=== PATIENT | male | born 1935 ===

== ENCOUNTER 2018-01-31 16:42 | Inpatient (IN) | payer MEDICARE, MEDICAID ==
[2018-01-31 16:42] VITALS: BMI 28.3
--- NOTE | 2018-01-31 17:40 | RAD ---
Date of service: 01/31/2018 HISTORY: fever COMPARISON: No prior. FINDINGS: LUNGS: Prominence of pulmonary vasculature may be secondary to AP technique and/or pulmonary vascular congestion. Poor visualization of both lung bases due to overlying soft tissue. PLEURA: No significant pleural effusion identified, no pneumothorax apparent. CARDIOVASCULAR: Atherosclerotic aortic calcifications. Cardiomediastinal silhouette is markedly enlarged. OSSEOUS STRUCTURES: Degenerative changes. VISUALIZED UPPER ABDOMEN: Normal. OTHER FINDINGS: None. IMPRESSION: Poor visualization of both lung bases 2 overlying soft tissue. Prominence of pulmonary vasculature may be secondary to AP technique and/or pulmonary vascular congestion.
[2018-01-31 17:57] LABS: VENOUS BLOOD GAS BASE EXCESS -1.3 mmol/L (0.0-2.0); VENOUS BLOOD GAS PCO2 35 mmHg (40-60); VENOUS BLOOD GAS PO2 43 mm/Hg (30-55); VENOUS BLOOD PH 7.42 (7.32-7.43)
[2018-01-31 18:00] LABS: BASO # 0.1 K/uL (0.0-0.2); BASO % 0.7 % (0.0-2.0); EOS % 0.1 % (0.0-4.0); HEMOGLOBIN 13.5 g/dL (12.0-18.0); LYMPH # 1.2 K/uL (1.0-4.3); LYMPH % 12.6 % (20.0-40.0); MEAN CELL VOLUME 102.8 fl (80.0-94.0); MEAN PLATELET VOLUME 8.8 fl (7.2-11.7); MONO # 0.8 K/uL (0.0-0.8); MONO % 8.1 % (0.0-10.0); NEUT # 7.3 K/uL (1.8-7.0); NEUT % 78.5 % (50.0-75.0); NRBC % 0.1 % (0.0-0.0); RBC 3.86 Mil/uL (4.40-5.90); RED CELL DISTRIBUTION WIDTH 13.3 % (11.5-14.5); WHITE BLOOD COUNT 9.3 K/uL (4.8-10.8)
[2018-01-31 18:08] LABS: INR 1.3 (0.9-1.2); PARTIAL THROMBOPLASTIN TIME 32.9 Seconds (25.6-37.1); PROTHROMBIN TIME 14.9 Seconds (9.8-13.1)
[2018-01-31 18:10] LABS: ALB/GLOB RATIO 1.1 (1.0-2.1); CALCIUM 8.9 mg/dL (8.4-10.2)
[2018-01-31] MEDS ORDERED: Sodium Chloride 0.9% 1,000 ML IV STA (18:46)
[2018-01-31] MEDS ORDERED: Insulin Regular 100 units/ml SC STA (18:58)
--- NOTE | 2018-01-31 18:59 | ED PDOC ---
HPI: General Adult Time Seen by Provider: 01/31/18 17:10 Chief Complaint (Nursing): Fever Chief Complaint (Provider): Fever History Per: Patient History/Exam Limitations: no limitations Onset/Duration Of Symptoms: Days (x3) Current Symptoms Are (Timing): Still Present Additional Complaint(s): 82 y/o male with a PMHx of diabetes and HTN brought in by BLS for evaluation of fever x3 days. Patient's son is at bedside. PMD: Dr. Trjeo Past Medical History Reviewed: Historical Data, Nursing Documentation, Vital Signs Vital Signs: Last Vital Signs Temp 99.3 F 02/03/18 16:00 Pulse 77 02/03/18 16:00 Resp 20 02/03/18 16:00 BP 149/71 02/03/18 16:00 Pulse Ox 98 02/07/18 18:19 - Medical History PMH: Anemia, Diabetes, HTN, Peripheral Edema (NO LONGER) Denies: Chronic Kidney Disease - Surgical History Surgical History: Endoscopy - Family History Family History: States: Unknown Family Hx - Social History Current smoker - smoking cessation education provided: No Alcohol: None Drugs: Denies - Immunization History Hx Tetanus Toxoid Vaccination: No Hx Influenza Vaccination: Yes Hx Pneumococcal Vaccination: No - Home Medications Home Medications: Ambulatory Orders Medication Instructions Recorded Losartan [Cozaar] 100 mg PO DAILY #0 tab 06/10/16 Simvastatin 10 mg PO HS #30 tablet 06/10/16 Tamsulosin [Flomax] 0.4 mg PO DAILY #0 cap 06/22/16 Ascorbic Acid [Vitamin C 500 mg 500 mg PO DAILY 01/31/18 Tab] Canagliflozin [Invokana] 300 mg PO DAILY 01/31/18 Docusate [Colace] 100 mg PO HS 01/31/18 Ergocalciferol [Drisdol 50,000 50,000 unit PO SAT 01/31/18 Intl Units Cap] Ferrous Sulfate [High Potency Iron] 2 tab PO HS 01/31/18 Furosemide [Lasix] 20 mg PO DAILY 01/31/18 Glimepiride [amaRYL] 4 mg PO BID 01/31/18 Multivit-Min/FA/Vit K/Lycopene 1 tab PO DAILY 01/31/18 [One-A-Day Men's 50 Plus Tablet] Umeclidinium Brm/Vilanterol Tr 1 puff IH DAILY 01/31/18 [Anoro Ellipta 62.5-25 Mcg INH] Acidoph/L.bulg/Bif.b/S.thermop 1 tab PO BID #14 tab 02/03/18 [Bacid Probiotic 5%-80%-10%-5%] Azithromycin [Zithromax] 500 mg PO DAILY #7 tablet 02/03/18 - Allergies Allergies/Adverse Reactions: Allergies Allergy/AdvReac Type Severity Reaction Status Date / Time No Known Allergies Allergy Verified 01/31/18 16:43 Review of Systems ROS Statement: Except As Marked, All Systems Reviewed And Found Negative Constitutional: Positive for: Fever Physical Exam - Reviewed Nursing Documentation Reviewed: Yes Vital Signs Reviewed: Yes - Physical Exam Appears: Positive for: Non-toxic, No Acute Distress Head Exam: Positive for: ATRAUMATIC, NORMAL INSPECTION, NORMOCEPHALIC Skin: Positive for: Normal Color, Warm, Dry. Negative for: Rash Eye Exam: Positive for: EOMI, Normal appearance, PERRL ENT: Positive for: Normal ENT Inspection Neck: Positive for: Normal, Painless ROM, Supple Cardiovascular/Chest: Positive for: Regular Rate, Rhythm. Negative for: Murmur Respiratory: Positive for: Normal Breath Sounds. Negative for: Respiratory Distress Gastrointestinal/Abdominal: Positive for: Normal Exam, Soft. Negative for: Tenderness Back: Positive for: Normal Inspection. Negative for: L CVA Tenderness, R CVA Tenderness, Vertebral Tenderness Extremity: Positive for: Normal ROM. Negative for: Deformity Neurologic/Psych: Positive for: Alert, Oriented (x3). Negative for: Motor/ Sensory Deficits - Laboratory Results Result Diagrams: 02/01/18 05:30 02/01/18 05:30 - ECG O2 Sat by Pulse Oximetry: 98 (RA) Pulse Ox Interpretation: Normal Medical Decision Making Medical Decision Makin:25 fever, rule out infection such as pneumonia and uti Plan: -VBG shock panel -EKG -CMP -Magnesium -Phosphorus -CBC w/ differential -PTT/PT -CXR -Insulin 4 units SC -1LNS -Tylenol 650mg PO -Blood culture -Urine culture -child monitor -Vital signs Q15M -Urinalysis -Reevaluation 19:19 Labs indicative of likely UTI. Also possible that patient is too dehydrated to show infiltrate on CXR. Patient accepted by Dr. Pena, hospitalist. Scribe Attestation: Documented by Jesus Hopkins, acting as a scribe for Monik Nathan MD. Provider Scribe Attestation: All medical record entries made by the Scribe were at my direction and personally dictated by me. I have reviewed the chart and agree that the record accurately reflects my personal performance of the history, physical exam, medical decision making, and the department course for this patient. I have also personally directed, reviewed, and agree with the discharge instructions and disposition. Disposition - Clinical Impression Clinical Impression: Fever in adult - Patient ED Disposition Is Patient to be Admitted: Yes Counseled Patient/Family Regarding: Studies Performed, Diagnosis, Need For Followup - Disposition Disposition Time: 19:19 Condition: STABLE - Pt Status Changed To: Hospital Disposition Of: Inpatient - Admit Certification Admit to Inpatient:: After my assessment, the patient will require hospitalization for at least two midnights. This is because of the severity of symptoms shown, intensity of services needed, and/or the medical risk in this patient being treated as an outpatient.
[2018-01-31 19:07] LABS: SQUAMOUS EPITHIAL 1 /hpf (0-5); URINE BACTERIA RARE (<OCC); URINE BILIRUBIN NEGATIVE (NEGATIVE); URINE BLOOD MODERATE (NEGATIVE); URINE CLARITY SLIGHTY-CLOUDY (Clear); URINE COLOR YELLOW (YELLOW); URINE GLUCOSE (UA) >=500 mg/dL (Normal); URINE LEUKOCYTE ESTERASE TRACE Leu/uL (Negative); URINE PROTEIN NEGATIVE (NEGATIVE)
[2018-01-31] MEDS ORDERED: Insulin Regular 100 units/ml ONE (19:08)
--- NOTE | 2018-01-31 20:07 | CP.PCM.HP ---
History of Present Illness - History of Present Illness History of Present Illness: 82 yo male with history of DM2 and HTN brought by family because of fever associated with generalized body ache and coughing for 2 days. Patient also noted to have generalized weakness and not eating. Denied SOB, chest pain or abdominal pain. Present on Admission - Present on Admission Any Indicators Present on Admission: No History of DVT/PE: No History of Uncontrolled Diabetes: No Urinary Catheter: No Decubitus Ulcer Present: No Review of Systems - Review of Systems All systems: reviewed and no additional remarkable complaints except (aside from those mentioned above, 12 point system review were negative by me) Past Patient History - Tetanus Immunizations Tetanus Immunization: Unknown - Past Medical History & Family History Past Medical History?: Yes - Past Social History Smoking Status: Former Smoker Chewing Tobacco Use: No Cigar Use: No Alcohol: None Drugs: Denies Home Situation {Lives}: With Family - CARDIAC Hx Hypertension: Yes Hx Peripheral Edema: Yes (NO LONGER) - PULMONARY Other/Comment: Pt. Came in with O2 @ 2 L/NC from [facility]. Hx: cough - NEUROLOGICAL Other/Comment: Hx. feeling weak - HEENT Hx HEENT Problems: Yes Hx Cataracts: Yes (BILAT IOL) - RENAL Hx Chronic Kidney Disease: No - ENDOCRINE/METABOLIC Hx Endocrine Disorders: Yes Hx Diabetes Mellitus Type 2: Yes - HEMATOLOGICAL/ONCOLOGICAL Hx Anemia: Yes - INTEGUMENTARY Hx Dermatological Problems: No - MUSCULOSKELETAL/RHEUMATOLOGICAL Hx Musculoskeletal Disorders: No Hx Falls: No - GASTROINTESTINAL Hx Gastrointestinal Disorders: Yes Hx Gastroesophageal Reflux: Yes - GENITOURINARY/GYNECOLOGICAL Hx Genitourinary Disorders: Yes Hx Bladder Cancer: Yes Hx Hematuria: Yes - PSYCHIATRIC Hx Psychophysiologic Disorder: No Hx Substance Use: No - SURGICAL HISTORY Hx Surgeries: Yes Hx Cataract Extraction: Yes Other/Comment: CYSTOSCOPY TURBT - ANESTHESIA Hx Anesthesia: Yes Hx Anesthesia Reactions: No Hx Malignant Hyperthermia: No Meds Allergies/Adverse Reactions: Allergies Allergy/AdvReac Type Severity Reaction Status Date / Time No Known Allergies Allergy Verified 01/31/18 16:43 Physical Exam - Constitutional Appears: No Acute Distress (appeared weak and lethargic) - Head Exam Head Exam: ATRAUMATIC - Eye Exam Eye Exam: absent: Scleral icterus - ENT Exam ENT Exam: Mucous Membranes Dry - Neck Exam Neck exam: Negative for: Meningismus - Respiratory Exam Respiratory Exam: absent: Rales, Rhonchi, Wheezes, Respiratory Distress - Cardiovascular Exam Cardiovascular Exam: REGULAR RHYTHM, +S1, +S2 - GI/Abdominal Exam GI & Abdominal Exam: Soft. absent: Tenderness - Rectal Exam Rectal Exam: Deferred - Extremities Exam Extremities exam: Negative for: calf tenderness, pedal edema - Back Exam Back exam: NORMAL INSPECTION - Neurological Exam Neurological exam: Altered (lethargic but able to respond appropriately) - Psychiatric Exam Psychiatric exam: Flat Affect - Skin Skin Exam: Dry, Intact Results - Vital Signs Recent Vital Signs: Last Vital Signs Temp 99.4 F 01/31/18 19:38 Pulse 85 01/31/18 19:38 Resp 24 01/31/18 19:38 BP 110/57 L 01/31/18 19:38 Pulse Ox 95 01/31/18 19:38 - Labs Result Diagrams: 01/31/18 17:54 01/31/18 17:54 Labs: Laboratory Results - last 24 hr 01/31/18 01/31/18 01/31/18 17:54 17:54 17:54 WBC 9.3 RBC 3.86 L Hgb 13.5 Hct 39.7 MCV 102.8 H MCH 35.0 H MCHC 34.0 RDW 13.3 Plt Count 111 L MPV 8.8 Neut % (Auto) 78.5 H Lymph % (Auto) 12.6 L [place] % (Auto) 8.1 Eos % (Auto) 0.1 Baso % (Auto) 0.7 Neut # (Auto) 7.3 H Lymph # (Auto) 1.2 [place] # (Auto) 0.8 Eos # (Auto) 0.0 Baso # (Auto) 0.1 PT 14.9 H INR 1.3 H APTT 32.9 pO2 VBG pH VBG pCO2 VBG HCO3 VBG Total CO2 VBG O2 Sat (Calc) VBG Base Excess VBG Potassium Sodium 138 Chloride 103 Glucose Lactate FiO2 Potassium 4.4 Carbon Dioxide 20 L Anion Gap 19 BUN 39 H Creatinine 1.6 H Est GFR ( Amer) 51 Est GFR (Non-Af Amer) 42 Random Glucose 239 H Calcium 8.9 Phosphorus 1.8 L Magnesium 2.6 H Total Bilirubin 3.4 H AST 56 ALT 43 Alkaline Phosphatase 66 Total Protein 7.7 Albumin 4.0 Globulin 3.7 Albumin/Globulin Ratio 1.1 Venous Blood Potassium Urine Color Urine Clarity Urine pH Ur Specific [place] Urine Protein Urine Glucose (UA) Urine Ketones Urine Blood Urine Nitrate Urine Bilirubin Urine Urobilinogen Ur Leukocyte Esterase Urine RBC (Auto) Urine Microscopic WBC Ur Squamous Epith Cells Urine Bacteria 01/31/18 01/31/18 17:54 18:40 WBC RBC Hgb Hct MCV MCH MCHC RDW Plt Count MPV Neut % (Auto) Lymph % (Auto) [place] % (Auto) Eos % (Auto) Baso % (Auto) Neut # (Auto) Lymph # (Auto) [place] # (Auto) Eos # (Auto) Baso # (Auto) PT INR APTT pO2 43 VBG pH 7.42 VBG pCO2 35 L VBG HCO3 23.4 VBG Total CO2 23.8 VBG O2 Sat (Calc) 82.0 H VBG Base Excess -1.3 L VBG Potassium 4.3 Sodium 135.0 Chloride 101.0 Glucose 258 H Lactate 2.7 H FiO2 21.0 Potassium Carbon Dioxide Anion Gap BUN Creatinine Est GFR ( Amer) Est GFR (Non-Af Amer) Random Glucose Calcium Phosphorus Magnesium Total Bilirubin AST ALT Alkaline Phosphatase Total Protein Albumin Globulin Albumin/Globulin Ratio Venous Blood Potassium 4.3 Urine Color Yellow Urine Clarity Slighty-cloudy Urine pH 5.0 Ur Specific [place] 1.020 Urine Protein Negative Urine Glucose (UA) >=500 Urine Ketones Negative Urine Blood Moderate Urine Nitrate Negative Urine Bilirubin Negative Urine Urobilinogen 4.0 Ur Leukocyte Esterase Trace Urine RBC (Auto) 25 H Urine Microscopic WBC 5 Ur Squamous Epith Cells 1 Urine Bacteria Rare Assessment & Plan - Assessment and Plan (Free Text) Assessment: 82 yo male with history of DM2 and HTN brought by family because of fever associated with generalized body ache and coughing for 2 days. Patient also noted to have generalized weakness and not eating. Denied SOB, chest pain or abdominal pain. 1. SIRS follow up blood and urine culture Rocephin 1gm IV daily Tylenol 650mg PO q 6hrs prn for fever continue IV hydration with NSS 200cc/hr 2. DM2 accuchek ACHS with Lispro coverage Glucotrol 10mg PO q am HgA1C, BMP in am 3. HTN BP stable continue Losartan 100mg PO daily
[2018-01-31] MEDS ORDERED: cefTRIAXone (Rocephin) 1 gm Inj ONE (20:23)
[2018-01-31 21:09] LABS: VENOUS BLOOD GAS PCO2 43 mmHg (40-60); VENOUS BLOOD GAS PO2 67 mm/Hg (30-55); VENOUS BLOOD PH 7.38 (7.32-7.43)
[2018-01-31] MEDS: Insulin Lispro (humaLOG) 100 Units/ml Inj SC SCH (22:24)
[2018-01-31] MEDS: Sodium Chloride 0.9% 1,000 ML IV SCH (22:26)
[2018-02-01] MEDS: Sodium Chloride 0.9% 1,000 ML IV SCH ×3 (01:32→20:00)
[2018-02-01 06:15] LABS: BASO % 0.4 % (0.0-2.0); EOS # 0.1 K/uL (0.0-0.7); EOS % 1.5 % (0.0-4.0); HEMOGLOBIN 13.4 g/dL (12.0-18.0); LYMPH % 31.7 % (20.0-40.0); MEAN CELL VOLUME 104.6 fl (80.0-94.0); MEAN CORPUSCULAR HEMOGLOBIN 35.4 pg (27.0-31.0); MEAN CORPUSCULAR HGB CONC 33.8 g/dL (33.0-37.0); MONO # 0.9 K/uL (0.0-0.8); MONO % 9.4 % (0.0-10.0); NEUT # 5.3 K/uL (1.8-7.0); RBC 3.8 Mil/uL (4.40-5.90); RED CELL DISTRIBUTION WIDTH 13.4 % (11.5-14.5); WHITE BLOOD COUNT 9.3 K/uL (4.8-10.8)
[2018-02-01 06:22] LABS: BLOOD UREA NITROGEN 39 mg/dl (9-20); CALCIUM 8.3 mg/dL (8.4-10.2); GFR NON-AFRICAN AMERICAN 53
--- NOTE | 2018-02-01 10:34 | RAD ---
Date of service: 02/01/2018 PROCEDURE: CHEST RADIOGRAPH, 1 VIEW HISTORY: rule out pneumonia COMPARISON: None available. FINDINGS: LUNGS: Diminished pulmonary volume. Body habitus obscures lung bases with right basilar airspace disease not excluded. None is evident at the left. PLEURA: No large pleural effusion or pneumothorax identified however again, the bases are obscured by a body habitus significantly. CARDIOVASCULAR: Stable cardiomegaly. Pulmonary vascular pattern appears stable with borderline congestion in question. OSSEOUS STRUCTURES: No significant abnormalities. VISUALIZED UPPER ABDOMEN: Normal. OTHER FINDINGS: None. IMPRESSION: Limited examination due to body habitus. No large infiltrate, pleural effusion or pneumothorax is identified. The bilateral bases are quite obscured by body habitus. Cardiomegaly appears stable. Borderline pulmonary vascular congestion.
--- NOTE | 2018-02-01 12:32 | CARD ---
APPROVED REPORT Date of service: 01/31/2018 EKG Measurement Heart [id number] <Conclusion> Sinus tachycardia Possible Left atrial enlargement Low voltage QRS Cannot rule out Anteroseptal infarct, age undetermined Abnormal ECG
--- NOTE | 2018-02-01 13:39 | CP.PCM.PN ---
Subjective - Date & Time of Evaluation Date of Evaluation: 02/01/18 Time of Evaluation: 10:30 - Subjective Subjective: Patient seen and examined. Appeared more alert and claimed he felt better. Has been afebrile since yesterday. Objective - Vital Signs/Intake and Output Vital Signs (last 24 hours): Temp Pulse Resp BP Pulse Ox 97.3 F L 74 20 125/67 95 02/01/18 12:53 02/01/18 12:53 02/01/18 12:53 02/01/18 12:53 02/01/18 12:53 - Medications Medications: Current Medications Acetaminophen (Tylenol 325mg Tab) 650 mg PO Q6 PRN PRN Reason: Fever >100.4 F Acetylcysteine (Acetylcysteine 20%) 2 ml INH RBID [facility] Ascorbic Acid (Vitamin C 500 Mg Tab) 500 mg PO DAILY [facility] Last Admin: 02/01/18 09:37 Dose: 500 mg Atorvastatin Calcium (Lipitor) 10 mg PO HS [facility] Last Admin: 02/01/18 00:20 Dose: 10 mg Docusate Sodium (Colace) 100 mg PO HS [facility] Last Admin: 02/01/18 00:20 Dose: 100 mg Ergocalciferol (Drisdol 50,000 Intl Units Cap) 1 cap PO SAT [facility] Ferrous Sulfate (Feosol) 325 mg PO HS [facility] Furosemide (Lasix) 20 mg PO DAILY [facility] Last Admin: 02/01/18 09:36 Dose: 20 mg Glipizide (Glucotrol) 10 mg PO ACB [facility] Last Admin: 02/01/18 09:35 Dose: 10 mg Heparin Sodium (Porcine) (Heparin) 5,000 units SC Q12 [facility] PRN Reason: Protocol Last Admin: 02/01/18 09:35 Dose: 5,000 units Ceftriaxone Sodium 1 gm/ (Sodium Chloride) 100 mls @ 100 mls/hr IVPB DAILY [facility] PRN Reason: Protocol Last Admin: 02/01/18 09:39 Dose: 100 mls/hr Sodium Chloride (Sodium Chloride 0.9%) 1,000 mls @ 150 mls/hr IV .Q6H40M [facility] Stop: 02/01/18 20:19 Last Admin: 02/01/18 01:32 Dose: 150 mls/hr Azithromycin 500 mg/ Sodium (Chloride) 250 mls @ 250 mls/hr IVPB DAILY [facility] PRN Reason: Protocol Insulin Human Lispro (Humalog) 0 units SC ACHS [facility] PRN Reason: Protocol Last Admin: 01/31/18 22:24 Dose: Not Given Losartan Potassium (Cozaar) 100 mg PO DAILY [facility] Last Admin: 02/01/18 09:34 Dose: 100 mg Tamsulosin HCl (Flomax) 0.4 mg PO DAILY [facility] Last Admin: 02/01/18 09:35 Dose: 0.4 mg - Labs Labs: 02/01/18 05:30 02/01/18 05:30 PT 14.9 Seconds (9.8-13.1) H 01/31/18 17:54 INR 1.3 (0.9-1.2) H 01/31/18 17:54 APTT 32.9 Seconds (25.6-37.1) 01/31/18 17:54 - Constitutional Appears: No Acute Distress - Head Exam Head Exam: ATRAUMATIC - Eye Exam Eye Exam: absent: Scleral icterus - ENT Exam ENT Exam: Mucous Membranes Moist - Neck Exam Neck Exam: absent: Meningismus - Respiratory Exam Respiratory Exam: Rales, Rhonchi. absent: Wheezes, Respiratory Distress - Cardiovascular Exam Cardiovascular Exam: REGULAR RHYTHM, +S1, +S2 - GI/Abdominal Exam GI & Abdominal Exam: Soft. absent: Tenderness - Rectal Exam Rectal Exam: Deferred - Back Exam Back Exam: absent: tenderness - Neurological Exam Neurological Exam: Alert, Oriented x3 - Psychiatric Exam Psychiatric exam: Normal Affect - Skin Skin Exam: Dry, Intact Assessment and Plan - Assessment and Plan (Free Text) Assessment: 82 yo male with history of DM2 and HTN brought by family because of fever associated with generalized body ache and coughing for 2 days. Patient also noted to have generalized weakness and not eating. Denied SOB, chest pain or abdominal pain. 1. Sepsis follow up blood and urine culture urine has trace of leukocyte esterase CXray showed bilateral lower lobe infiltrate?? CT scan of chest continue Rocephin and Zithromax has been afebrile since yesterday continue IV hydration with NSS 150cc/hr 2. DM2 BS controlled accuchek ACHS with Lispro coverage Glucotrol 10mg PO q am HgA1C: 8.7 3. HTN BP stable continue Losartan 100mg PO daily
[2018-02-01] MEDS: Insulin Lispro (humaLOG) 100 Units/ml Inj SC SCH ×3 (14:01→17:13)
[2018-02-01] MEDS: Azithromycin 500 MG in Sodium Chloride 0.9% 250 ML IVPB SCH (14:02)
--- NOTE | 2018-02-01 15:59 | CT ---
Date of service: 02/01/2018 PROCEDURE: CT Chest without contrast HISTORY: obscured reading on CXray COMPARISON: Frontal chest radiograph 02/01/2018. TECHNIQUE: Contiguous axial images were obtained through the chest without intravenous contrast enhancement. Sagittal and coronal reconstructions were performed. Radiation dose (DLP): 359.97 mGy-cm. This CT exam was performed using one or more of the following dose reduction techniques: Automated exposure control, adjustment of the mA and/or kV according to patient size, and/or use of iterative reconstruction technique. FINDINGS: Limitations: Restrained motion related artifacts. LUNGS: Limited peripheral pulmonary emphysematous changes seen bilateral apices and associated fibrosis is noted which also extends more inferiorly to the mid lung guerrero bilaterally. Limited bilateral basilar dependent atelectasis or infiltrates are identified. Motion artifacts are severe at this level. Underlying ground-glass opacity may reflect interstitial pulmonary disease on acute or subacute basis. No pneumothorax. Borderline right apical bronchiectasis. Questionable solitary 4 mm subpleural nodule or fibrosis left upper lobe image 39 series 3, noncalcified. MEDIASTINUM: The thoracic inlet appears unremarkable. There is no thoracic aortic aneurysm. Normal caliber main pulmonary artery segment. Cardiomegaly is noted with mild pulmonary vascular congestion suggested. Trace pericardial effusion noted. Limited mediastinal lymphadenopathy is appreciate including an inferior pretracheal lymph node measuring 0.9 x 1.9 cm. PLEURA: No pleural fluid. No pneumothorax. BONES: No fracture. No destructive lesion. UPPER ABDOMEN: Grossly unremarkable. OTHER FINDINGS: None. IMPRESSION: 1. [id number] pulmonary interstitial fibrosis appreciated, apical predominant where trace emphysematous changes are identified accompanying peripheral fibrotic changes. An element of fibrosis may be present the bilateral bases is difficult to evaluate due to limited alveolitis bilaterally. Ground-glass opacity is suspected at the bilateral lower lobes at the bases. 2. Pattern suggests [id number] pulmonary vascular congestion. Cardiomegaly appears reiterated compared to prior chest radiograph noted above. Trace pericardial effusion. No pleural effusion bilaterally. 3. Limited mediastinal lymphadenopathy. 4. Questionable 4 mm subpleural nodule left upper for which follow-up chest is recommended 1 year to demonstrate stability of this finding.
[2018-02-01 22:57] LABS: SQUAMOUS EPITHIAL 1 /hpf (0-5); URINE BACTERIA RARE (<OCC); URINE BILIRUBIN NEGATIVE (NEGATIVE); URINE BLOOD SMALL (NEGATIVE); URINE CLARITY CLEAR (Clear); URINE COLOR YELLOW (YELLOW); URINE GLUCOSE (UA) >=500 mg/dL (Normal); URINE HYALINE CAST 0-2 /hpf (0-2); URINE LEUKOCYTE ESTERASE NEG Leu/uL (Negative); URINE PROTEIN NEGATIVE (NEGATIVE)
[2018-02-02] MEDS: Acetylcysteine 20% Inhal Soln (4ml) INH SCH ×2 (07:42→19:05)
[2018-02-02] MEDS: Azithromycin 500 MG in Sodium Chloride 0.9% 250 ML IVPB SCH (09:31)
[2018-02-02] MEDS: Insulin Lispro (humaLOG) 100 Units/ml Inj SC SCH ×4 (09:32→22:44)
[2018-02-02] MEDS: Lactobacillus Acidophilus 500 MU Cap PO SCH ×2 (11:24→16:38)
--- NOTE | 2018-02-02 15:05 | CP.PCM.PN ---
Subjective - Date & Time of Evaluation Date of Evaluation: 02/02/18 Time of Evaluation: 11:00 - Subjective Subjective: Patient seen and examined. Complained of too much unproductive coughing. Also has been having large amount of diarrhea since yesterday. Objective - Vital Signs/Intake and Output Vital Signs (last 24 hours): Temp Pulse Resp BP Pulse Ox 98.6 F 80 18 136/73 98 02/02/18 11:57 02/02/18 13:09 02/02/18 11:57 02/02/18 11:57 02/02/18 13:09 - Medications Medications: Current Medications Acetaminophen (Tylenol 325mg Tab) 650 mg PO Q6 PRN PRN Reason: Fever >100.4 F Acetylcysteine (Acetylcysteine 20%) 2 ml INH RBID [facility] Last Admin: 02/02/18 07:42 Dose: Not Given Albuterol/Ipratropium (Duoneb 3 Mg/0.5 Mg (3 Ml) Ud) 3 ml INH RBID [facility] Ascorbic Acid (Vitamin C 500 Mg Tab) 500 mg PO DAILY [facility] Last Admin: 02/02/18 09:31 Dose: 500 mg Atorvastatin Calcium (Lipitor) 10 mg PO HS [facility] Last Admin: 02/01/18 21:25 Dose: 10 mg Ergocalciferol (Drisdol 50,000 Intl Units Cap) 1 cap PO SAT [facility] Ferrous Sulfate (Feosol) 325 mg PO HS [facility] Last Admin: 02/01/18 21:23 Dose: 325 mg Furosemide (Lasix) 20 mg PO DAILY [facility] Last Admin: 02/02/18 09:32 Dose: 20 mg Glipizide (Glucotrol) 5 mg PO ACB [facility] Guaifenesin/Dextromethorphan (Robitussin Dm) 10 ml PO Q6 PRN PRN Reason: Cough Heparin Sodium (Porcine) (Heparin) 5,000 units SC Q12 [facility] PRN Reason: Protocol Last Admin: 02/02/18 09:34 Dose: 5,000 units Ceftriaxone Sodium 1 gm/ (Sodium Chloride) 100 mls @ 100 mls/hr IVPB DAILY [facility] PRN Reason: Protocol Last Admin: 02/02/18 09:34 Dose: 100 mls/hr Azithromycin 500 mg/ Sodium (Chloride) 250 mls @ 250 mls/hr IVPB DAILY [facility] PRN Reason: Protocol Last Admin: 02/02/18 09:31 Dose: 250 mls/hr Insulin Human Lispro (Humalog) 0 units SC ACHS [facility] PRN Reason: Protocol Last Admin: 02/02/18 12:48 Dose: 1 units Lactobacillus Acidophilus (Bacid Acidophilus) 1 cap PO BID [facility] Last Admin: 02/02/18 11:24 Dose: 1 cap Losartan Potassium (Cozaar) 100 mg PO DAILY [facility] Last Admin: 02/02/18 09:33 Dose: 100 mg Tamsulosin HCl (Flomax) 0.4 mg PO DAILY [facility] Last Admin: 02/02/18 09:34 Dose: 0.4 mg - Labs Labs: 02/01/18 05:30 02/01/18 05:30 PT 14.9 Seconds (9.8-13.1) H 01/31/18 17:54 INR 1.3 (0.9-1.2) H 01/31/18 17:54 APTT 32.9 Seconds (25.6-37.1) 01/31/18 17:54 - Constitutional Appears: No Acute Distress - Head Exam Head Exam: ATRAUMATIC - Eye Exam Eye Exam: absent: Scleral icterus - ENT Exam ENT Exam: Mucous Membranes Moist - Neck Exam Neck Exam: absent: Meningismus - Respiratory Exam Respiratory Exam: Rales, Rhonchi. absent: Wheezes, Respiratory Distress - Cardiovascular Exam Cardiovascular Exam: REGULAR RHYTHM, +S1, +S2 - GI/Abdominal Exam GI & Abdominal Exam: Soft. absent: Tenderness - Rectal Exam Rectal Exam: Deferred - Back Exam Back Exam: NORMAL INSPECTION - Neurological Exam Neurological Exam: Alert, Oriented x3 - Psychiatric Exam Psychiatric exam: Normal Affect - Skin Skin Exam: Dry, Intact Assessment and Plan - Assessment and Plan (Free Text) Assessment: 82 yo male with history of DM2 and HTN brought by family because of fever associated with generalized body ache and coughing for 2 days. Patient also noted to have generalized weakness and not eating. 1. UTI urine culture: Gram + cocci continue Rocephin and Zithromax has been afebrile since yesterday 2. Pneumonia CT scan of Chest: pulmonary interstitial fibrosis with emphysematous changes and ground glass opacity on both bases; cardiomegaly with mild pulmonary congestion on IV Rocephin and Zithromax Mucomyst with Duoneb for inhalation therapy BID Robitussin DM q 6hrs for coughing Procalcitonin: 2.5 3. Diarrhea stools sent for C dif place on contact isolation 4. DM2 BS low this morning on 2 occasions accuchek ACHS with Lispro coverage reduce Glucotrol to 5mg PO ACB HgA1C: 8.7 5. HTN BP stable continue Losartan 100mg PO daily Lasix 40mg PO daily
[2018-02-02 16:27] LABS: TROPONIN I 0.044 ng/mL (0.00-0.120)
[2018-02-02] MEDS: guaiFENesin DM 200 mg-20 mg/10 ml UD PO PRN ×2 (16:39→22:44)
[2018-02-02] MEDS: Albuterol-Ipratrop 3 mg / 0.5 (3 ml) UD INH SCH (19:05)
[2018-02-03 00:14] VITALS: RESP 20
[2018-02-03] MEDS: Insulin Lispro (humaLOG) 100 Units/ml Inj SC SCH ×3 (06:37→17:56)
[2018-02-03] MEDS: Albuterol-Ipratrop 3 mg / 0.5 (3 ml) UD INH SCH (07:30)
[2018-02-03] MEDS: Acetylcysteine 20% Inhal Soln (4ml) INH SCH (07:30)
[2018-02-03] MEDS ORDERED: Ergocalciferol 50,000 Intl Units Cap PO SCH (09:00)
[2018-02-03] MEDS: Lactobacillus Acidophilus 500 MU Cap PO SCH ×2 (09:12→17:57)
[2018-02-03] MEDS: Azithromycin 500 MG in Sodium Chloride 0.9% 250 ML IVPB SCH (09:13)
[2018-02-03] MEDS: guaiFENesin DM 200 mg-20 mg/10 ml UD PO PRN (09:21)
[2018-02-03 16:25] VITALS: BP 149/71; PULSE 77; TEMP 99.3
--- NOTE | 2018-02-03 17:39 | CP.PCM.DIS ---
Provider - Provider Date of Admission: 01/31/18 19:19 Attending physician: Tremayne Pena MD Time Spent in preparation of Discharge (in minutes): 25 Diagnosis - Discharge Diagnosis (1) UTI (urinary tract infection) Status: Acute Comment: Patient was put on IV Rocephin and Zithromax. to continue PO Zithromax for another 7 days (2) Pneumonia Status: Acute Comment: patient put on IV Rocephin and Zithromax. sent home on PO Zithromax (3) DM2 (diabetes mellitus, type 2) Status: Chronic Comment: resume Amaryl and Invokana at home (4) HTN (hypertension) Status: Chronic Comment: BP stable. continue Losartan Hospital Course - Lab Results Lab Results: Micro Results 01/31/18 17:30 Blood Blood Culture - Preliminary NO GROWTH AFTER 48 HOURS 01/31/18 17:00 Blood Blood Culture - Preliminary NO GROWTH AFTER 48 HOURS 01/31/18 18:40 Urine,Clean Catch Urine Culture - Final Gram Positive Cocci Most Recent Lab Values WBC 9.3 K/uL (4.8-10.8) 02/01/18 05:30 RBC 3.80 Mil/uL (4.40-5.90) L 02/01/18 05:30 Hgb 13.4 g/dL (12.0-18.0) 02/01/18 05:30 Hct 39.7 % (35.0-51.0) 02/01/18 05:30 MCV 104.6 fl (80.0-94.0) H 02/01/18 05:30 MCH 35.4 pg (27.0-31.0) H 02/01/18 05:30 MCHC 33.8 g/dL (33.0-37.0) 02/01/18 05:30 RDW 13.4 % (11.5-14.5) 02/01/18 05:30 Plt Count 95 K/uL (130-400) L 02/01/18 05:30 MPV 9.0 fl (7.2-11.7) 02/01/18 05:30 Neut % (Auto) 57.0 % (50.0-75.0) 02/01/18 05:30 Lymph % (Auto) 31.7 % (20.0-40.0) 02/01/18 05:30 [place] % (Auto) 9.4 % (0.0-10.0) 02/01/18 05:30 Eos % (Auto) 1.5 % (0.0-4.0) 02/01/18 05:30 Baso % (Auto) 0.4 % (0.0-2.0) 02/01/18 05:30 Neut # (Auto) 5.3 K/uL (1.8-7.0) 02/01/18 05:30 Lymph # (Auto) 3.0 K/uL (1.0-4.3) 02/01/18 05:30 [place] # (Auto) 0.9 K/uL (0.0-0.8) H 02/01/18 05:30 Eos # (Auto) 0.1 K/uL (0.0-0.7) 02/01/18 05:30 Baso # (Auto) 0.0 K/uL (0.0-0.2) 02/01/18 05:30 PT 14.9 Seconds (9.8-13.1) H 01/31/18 17:54 INR 1.3 (0.9-1.2) H 01/31/18 17:54 APTT 32.9 Seconds (25.6-37.1) 01/31/18 17:54 pO2 67 mm/Hg (30-55) H 01/31/18 21:06 VBG pH 7.38 (7.32-7.43) 01/31/18 21:06 VBG pCO2 43 mmHg (40-60) 01/31/18 21:06 VBG HCO3 24.8 mmol/L 01/31/18 21:06 VBG Total CO2 26.7 mmol/L (22-28) 01/31/18 21:06 VBG O2 Sat (Calc) 95.2 % (40-65) H 01/31/18 21:06 VBG Base Excess 0.0 mmol/L (0.0-2.0) 01/31/18 21:06 VBG Potassium 3.9 mmol/L (3.6-5.2) 01/31/18 21:06 Sodium 137.0 mmol/L (132-148) 01/31/18 21:06 Chloride 103.0 mmol/L (98-107) 01/31/18 21:06 Glucose 184 mg/dL (75-110) H 01/31/18 21:06 Lactate 1.1 mmol/L (0.7-2.1) 01/31/18 21:06 FiO2 21.0 % 01/31/18 21:06 Sodium 141 mmol/l (132-148) 02/01/18 05:30 Potassium 4.3 MMOL/L (3.6-5.0) 02/01/18 05:30 Chloride 107 mmol/L (98-107) 02/01/18 05:30 Carbon Dioxide 24 mmol/L (22-30) 02/01/18 05:30 Anion Gap 14 (10-20) 02/01/18 05:30 BUN 39 mg/dl (9-20) H 02/01/18 05:30 Creatinine 1.3 mg/dl (0.8-1.5) 02/01/18 05:30 Est GFR ( Amer) > 60 02/01/18 05:30 Est GFR (Non-Af Amer) 53 02/01/18 05:30 POC Glucose (mg/dL) 186 mg/dL (65-110) H 02/03/18 12:00 Random Glucose 89 mg/dL (75-110) 02/01/18 05:30 Hemoglobin A1c 8.7 % (4.2-6.5) H 02/01/18 06:30 Calcium 8.3 mg/dL (8.4-10.2) L 02/01/18 05:30 Phosphorus 1.8 mg/dl (2.5-4.5) L 01/31/18 17:54 Magnesium 2.6 MG/DL (1.6-2.3) H 01/31/18 17:54 Total Bilirubin 3.4 mg/dl (0.2-1.3) H 01/31/18 17:54 AST 56 U/L (17-59) 01/31/18 17:54 ALT 43 U/L (21-72) 01/31/18 17:54 Alkaline Phosphatase 66 U/L (38-126) 01/31/18 17:54 Troponin I 0.0440 ng/mL (0.00-0.120) 02/02/18 15:40 NT-Pro-B Natriuret Pep 298 pg/ml (0-900) 02/02/18 15:40 Total Protein 7.7 G/DL (6.3-8.2) 01/31/18 17:54 Albumin 4.0 g/dL (3.5-5.0) 01/31/18 17:54 Globulin 3.7 gm/dL (2.2-3.9) 01/31/18 17:54 Albumin/Globulin Ratio 1.1 (1.0-2.1) 01/31/18 17:54 Procalcitonin 2.50 NG/ML (0.19-0.49) H 02/01/18 15:40 TSH 3rd Generation 2.71 mIU/ML (0.46-4.68) 02/01/18 05:30 Venous Blood Potassium 3.9 mmol/L (3.6-5.2) 01/31/18 21:06 Urine Color Yellow (YELLOW) 02/01/18 22:46 Urine Clarity Clear (Clear) 02/01/18 22:46 Urine pH 5.0 (5.0-8.0) 02/01/18 22:46 Ur Specific [place] 1.012 (1.003-1.030) 02/01/18 22:46 Urine Protein Negative mg/dL (NEGATIVE) 02/01/18 22:46 Urine Glucose (UA) >=500 mg/dL (Normal) 02/01/18 22:46 Urine Ketones Negative mg/dL (NEGATIVE) 02/01/18 22:46 Urine Blood Small (NEGATIVE) 02/01/18 22:46 Urine Nitrate Negative (NEGATIVE) 02/01/18 22:46 Urine Bilirubin Negative (NEGATIVE) 02/01/18 22:46 Urine Urobilinogen 4.0 mg/dL (0.2-1.0) 02/01/18 22:46 Ur Leukocyte Esterase Neg Anna/uL (Negative) 02/01/18 22:46 Urine RBC (Auto) 2 /hpf (0-3) 02/01/18 22:46 Urine Microscopic WBC < 1 /hpf (0-5) 02/01/18 22:46 Ur Squamous Epith Cells 1 /hpf (0-5) 02/01/18 22:46 Urine Bacteria Rare (<OCC) 02/01/18 22:46 Hyaline Casts 0-2 /hpf (0-2) 02/01/18 22:46 C. difficile Ag & Toxin Negative (NEGATIVE) 02/02/18 11:45 - Hospital Course Hospital Course: 82 yo male with history of DM2 and HTN brought by family because of fever associated with generalized body ache and coughing for 2 days. Patient also noted to have generalized weakness and anorexic. Work ups revealed bilateral basal infiltrate and UTI. Patient was hydrated and started on IV Rocephin and Zithromax. Patient did well and now ready for discharge. Discharge Exam - Head Exam Head Exam: ATRAUMATIC - Eye Exam Eye Exam: absent: Scleral icterus - ENT Exam ENT Exam: Mucous Membranes Moist - Respiratory Exam Respiratory Exam: absent: Rales, Rhonchi, Wheezes, Respiratory Distress - Cardiovascular Exam Cardiovascular Exam: REGULAR RHYTHM, +S1, +S2 - GI/Abdominal Exam GI & Abdominal Exam: Soft. absent: Tenderness - Rectal Exam Rectal Exam: Deferred - Neurological Exam Neurological exam: Alert, Oriented x3 - Psychiatric Exam Psychiatric exam: Normal Affect - Skin Skin Exam: Dry, Intact Discharge Plan - Discharge Medications Prescriptions: Acidoph/L.bulg/Bif.b/S.thermop [Bacid Probiotic 5%-80%-10%-5%] 1 tab PO BID #14 tab Azithromycin [Zithromax] 500 mg PO DAILY #7 tablet - Follow Up Plan Condition: GOOD Disposition: HOME/ ROUTINE Instructions: Pneumonia in Adults
[2018-02-07 18:19] VITALS: O2SAT 98
== END 2018-02-03 18:25 | disposition home health service (06) | DRG 871 ==
LOC: H.ER 16:42 → H.ERHOLD 19:19 → H.TEL 21:28
DX: A41.9 Sepsis, unspecified organism (principal); J18.9 Pneumonia, unspecified organism; N39.0 Urinary tract infection, site not specified; I10 Essential (primary) hypertension; K21.9 Gastro-esophageal reflux disease without esophagitis; E11.9 Type 2 diabetes mellitus without complications; R19.7 Diarrhea, unspecified; Z85.51 Personal history of malignant neoplasm of bladder; Z79.84 Long term (current) use of oral hypoglycemic drugs; Z87.891 Personal history of nicotine dependence